=== PATIENT | male | born 1935 | race Caucasian/White ===

== ENCOUNTER 2020-09-05 07:30 | Inpatient (IN) | payer MEDICARE ==
[2020-09-05] MEDS ORDERED: DUONEB 0.5-3 MG/3 ml Neb IH ONE ×2 (07:44→08:03)
[2020-09-05] MEDS ORDERED: solu-MEDROL 125 MG IV ONE (07:44)
[2020-09-05] MEDS ORDERED: DILTIAZEM HCL 25 MG/5 ML VIAL IV ONE (07:50)
[2020-09-05] MEDS ORDERED: solu-MEDROL 125 MG ONE (07:52)
[2020-09-05] MEDS ORDERED: Cardizem IV 50 MG/10 ML IV ONE (07:53)
--- NOTE | 2020-09-05 07:56 | ERPHSYRPT ---
- History of Present Illness Time Seen by Provider: 09/05/20 07:31 Source: patient Exam Limitations: no limitations Physician History: Patient is here for low O2 and confusion. Patient has tested positive for Covid last week. Overall he was doing okay. However, this morning his states he became more confused, was hypoxic upon EMS arrival. Usually is not on any oxygen. Denies a history of smoking. Saw Dr. Jacques recent as yesterday. Location: generalized Quality: cough, COVID, SOB Radiation: none Severity: moderate Duration: 1 week Timing: gradual Modifying factors/associated signs and symptoms: home treatment, has seen Dr. Schultz Severity: moderate Modifying Factors: Improves With: other Associated Symptoms: denies symptoms, No syncope Allergies/Adverse Reactions: No Known Drug Allergies Allergy (Verified 09/05/20 08:10) Home Medications: Albuterol Sulfate [Albuterol Sulfate Hfa] 1 inh PO UD 09/05/20 [History] Apixaban [Eliquis] 5 mg PO BID 09/05/20 [History] Aspirin EC 81 mg [Ecotrin 81 mg] 81 mg PO DAILY 09/05/20 [History] Cefdinir [Omnicef 300 mg] 300 mg PO BID 09/05/20 [History] Famotidine [Pepcid] 40 mg PO DAILY 09/05/20 [History] Lisinopril 10 mg [Zestril 10 MG] 10 mg PO DAILY 09/05/20 [History] Lovastatin 20 mg PO DAILY 09/05/20 [History] Metoprolol Succinate 50 mg [Toprol Xl 50 MG] 50 mg PO DAILY 09/05/20 [History] Prednisone 20 mg [Deltasone 20 mg] 40 mg PO QAM 09/05/20 [History] - Review of Systems Constitutional: Other (increased confusion, per ), No Fever, No Chills Eyes: No Symptoms Ears, Nose, & Throat: No Symptoms Respiratory: Cough, Dyspnea Cardiac: No Chest Pain, No Edema, No Syncope Abdominal/Gastrointestinal: No Abdominal Pain, No Nausea, No Vomiting, No Diarrhea Genitourinary Symptoms: No Dysuria Musculoskeletal: No Back Pain, No Neck Pain Skin: No Rash Neurological: No Dizziness, No Focal Weakness, No Sensory Changes Psychological: No Symptoms Endocrine: No Symptoms All Other Systems: Reviewed and Negative - Nursing Vital Signs Nursing Vital Signs: Initial Vital Signs Pulse Rate 121 H 09/05/20 07:44 Respiratory Rate 36 H 09/05/20 07:44 Blood Pressure 179/117 09/05/20 07:44 O2 Sat by Pulse Oximetry 94 L 09/05/20 07:44 Pain Scale Pain Intensity 0 reviewed - Physical Exam SpO2 Interpretation: hypoxic, ABG ordered, O2 applied Comments: 09/05/20 08:04 Physical Exam Vitals signsand nursing notereviewed. Constitutional: Appearance: He is well-developed. Appears in distress from shortness of breath HENT: Head: Normocephalicand atraumatic. No obvious head trauma. Eyes: Conjunctiva/sclera: Conjunctivae normal. Neck: Musculoskeletal: Normal range of motion. Trachea: No tracheal deviation. Cardiovascular: Rate and Rhythm: Normal rate. Pulmonary: Effort: Tachypnea wheezing throughout Abdominal: Palpations: Abdomen is soft. Musculoskeletal: General: No deformity. Skin: General: Skin is warmand dry. Neurological: Mental Status: He is alertand oriented to person. Unsure of time or place. Psychiatric: Behavior: Behaviornormal. No trismus, able to fully extend neck, normal range of motion of neck without pain. Uvula is midline, no swelling of the mouth, noraml oropharynx. No exudate, no signs of meningitis, no floor of mouth swelling, no hot potato voice on exam. No buccal swelling, no gum bleeding, no signs of tooth abscess/infection. No obvious deformity, sensation intact, 2+ capillary refill, 2 point tactile discrimination intact. 5 out of 5 strength. Full range of motion without pain. Compartments are soft, nontender. Overlying skin shows no tenting, bruising, ecchymosis. - Course Nursing assessment & vital signs reviewed: Yes EKG Interpreted by Me: A-fib, Other (A. fib with RVR) Ordered Tests: Active Orders 24 hr Category Date Time Status Admit as Inpatient ROUTINE Care 09/05/20 07:58 Active Call Admit Doctor for Orders ON ADMISSION Care 09/05/20 07:59 Active Manager Inside STAT Care 09/05/20 07:32 Active Code Status Order ROUTINE Care 09/05/20 07:58 Active EKG-ER Only STAT Care 09/05/20 07:32 Active IV Care Q6H Care 09/05/20 07:58 Active IV Insertion STAT Care 09/05/20 07:32 Active Heart-Healthy Diet Diet 09/05/20 Breakfast Active CHEST 1 VIEW (PORTABLE) Stat Exams 09/05/20 07:32 Completed ABG [ARTERIAL BLOOD GASES] Stat Lab 09/05/20 07:35 Results CBC W DIFF Stat Lab 09/05/20 07:55 Completed CMP Stat Lab 09/05/20 07:55 Completed Lactic Acid Stat Lab 09/05/20 08:09 Completed Manual Differential NC Stat Lab 09/05/20 07:55 Completed NT PRO BNP Stat Lab 09/05/20 07:55 Completed PROTIME WITH INR Stat Lab 09/05/20 07:55 Completed TROPONIN Q3H Lab 09/05/20 07:55 Completed TROPONIN Q3H Lab 09/05/20 10:45 Ordered TROPONIN Q3H Lab 09/05/20 13:45 Ordered TROPONIN Q3H Lab 09/05/20 16:45 Ordered TROPONIN Q3H Lab 09/05/20 19:45 Ordered Pulse Oximetry CONTINUOUS RT 09/05/20 08:01 Active Respiratory Therapy Assessment DAILY RT 09/05/20 08:27 Active Medication Summary Generic Name Dose Route Start Last Admin Trade Name Freq PRN Reason Stop Dose Admin Sodium Chloride 1,000 mls @ 100 mls/hr 09/05/20 08:00 Sodium Chloride 0.9% 1000 Ml IV 10/05/20 07:59 .Q10H CHAR Morphine Sulfate 4 mg 09/05/20 07:58 Morphine Sulfate 4 Mg Inj IV 09/10/20 07:57 Q4H PRN PRN PAIN Ondansetron HCl 4 mg 09/05/20 07:58 Zofran 4 Mg/2 Ml Vial IV 10/05/20 07:57 Q6H PRN PRN NAUSEA/VOMITING Discontinued Medications Generic Name Dose Route Start Last Admin Trade Name Freq PRN Reason Stop Dose Admin Albuterol/Ipratropium 3 ml 09/05/20 07:44 09/05/20 07:50 Duoneb 0.5-3 Mg/3 Ml Neb IH 09/05/20 07:45 3 ml STAT ONE Administration Albuterol/Ipratropium Confirm 09/05/20 08:03 Duoneb 0.5-3 Mg/3 Ml Neb Administered 09/05/20 08:04 Dose 3 ml IH .STK-MED ONE Diltiazem HCl 15 mg 09/05/20 07:50 09/05/20 07:57 Diltiazem Hcl 25 Mg/5 Ml Vial IV 09/05/20 07:51 15 mg ONCE ONE Administration Diltiazem HCl Confirm 09/05/20 07:53 Cardizem Iv 50 Mg/10 Ml Administered 09/05/20 07:54 Dose 50 mg IV .STK-MED ONE Lorazepam 1 mg 09/05/20 08:26 09/05/20 08:36 Ativan 2 Mg/1 Ml Vial IV 09/05/20 08:27 1 mg STAT ONE Administration Lorazepam Confirm 09/05/20 08:27 Ativan 2 Mg/1 Ml Vial Administered 09/05/20 08:28 Dose 2 mg .ROUTE .STK-MED ONE Methylprednisolone Sodium Succinate 125 mg 09/05/20 07:44 09/05/20 07:56 Solu-Medrol 125 Mg IV 09/05/20 07:45 125 mg STAT ONE Administration Methylprednisolone Sodium Succinate Confirm 09/05/20 07:52 Solu-Medrol 125 Mg Administered 09/05/20 07:53 Dose 125 mg .ROUTE .STK-MED ONE Lab/Rad Data: Laboratory Result Diagrams 09/05/20 07:55 09/05/20 07:55 Laboratory Results 09/05/20 09/05/20 09/05/20 Range/Units 08:09 07:55 07:55 WBC (4.0-10.5) K/mm3 RBC (4.1-5.6) M/mm3 Hgb (12.5-18.0) gm/dl Hct (42-50) % MCV (78-100) fl MCH (26-32) pg MCHC (32-36) g/dl RDW (11.5-14.0) % Plt Count (150-450) K/mm3 MPV (7.5-11.0) fl Absolute Granulocytes (1.4-6.9) Segmented Neutrophils (36.-66.) % Band Neutrophils (0.0-2.0) % Lymphocytes (Manual) (24-44) % Monocytes (Manual) (0.0-12.0) % Nucleated RBCs % Hypochromia Platelet Estimate (NORMAL) RBC Morphology Polychromasia Anisocytosis Macrocytosis PT 37.0 H (8.83-12.87) SECONDS INR 3.24 H (0.8-3.0) Puncture Site pCO2 (35-45) mmHg pO2 (75-100) mmHg Base Excess (-2.0-2.0) O2 Saturation (94-100) g/dF ABG pH (7.35-7.45) ABG HCO3 (22-28) ABG O2 Sat (Measured) (95-100) % Jose Alberto Test A-a Gradient a/A Ratio Hemoglobin Carboxyhemoglobin (0.0-6.9) % THgb Methemoglobin (1.4-1.5) % Potassium (3.5-5.1) Temperature C POC O2 Flow Rate % Sodium (137-145) mmol/L Chloride (98-107) mmol/L Carbon Dioxide (22-30) mmol/L Anion Gap (5-15) MEQ/L BUN (9-20) mg/dL Creatinine (0.66-1.25) mg/dL Estimated GFR ML/MIN Glucose (74-106) mg/dL Lactic Acid 7.8 H (0.4-2.0) Calcium (8.4-10.2) mg/dL Total Bilirubin (0.2-1.3) mg/dL AST (17-59) U/L ALT (0-50) U/L Alkaline Phosphatase (38-126) U/L Troponin I 0.315 H* (0.000-0.034) ng/mL NT-Pro-B Natriuret Pep (0-1800) pg/mL Serum Total Protein (6.3-8.2) g/dL Albumin (3.5-5.0) g/dL 09/05/20 09/05/20 09/05/20 Range/Units 07:55 07:55 07:35 WBC 14.5 H (4.0-10.5) K/mm3 RBC 5.43 (4.1-5.6) M/mm3 Hgb 14.9 (12.5-18.0) gm/dl Hct 47.5 (42-50) % MCV 87.5 (78-100) fl MCH 27.4 (26-32) pg MCHC 31.4 L (32-36) g/dl RDW 18.0 H (11.5-14.0) % Plt Count 310 (150-450) K/mm3 MPV 10.2 (7.5-11.0) fl Absolute Granulocytes 12.31 H (1.4-6.9) Segmented Neutrophils 80 H (36.-66.) % Band Neutrophils 4 H (0.0-2.0) % Lymphocytes (Manual) 12 L (24-44) % Monocytes (Manual) 4 (0.0-12.0) % Nucleated RBCs 6 % Hypochromia 1+ Platelet Estimate NORMAL (NORMAL) RBC Morphology ABNORMAL Polychromasia 1+ Anisocytosis 1+ Macrocytosis 1+ PT (8.83-12.87) SECONDS INR (0.8-3.0) Puncture Site Pending pCO2 24 L (35-45) mmHg pO2 78 (75-100) mmHg Base Excess -9.9 L (-2.0-2.0) O2 Saturation 93.3 L (94-100) g/dF ABG pH 7.36 (7.35-7.45) ABG HCO3 13.6 L* (22-28) ABG O2 Sat (Measured) 94.7 L (95-100) % Jose Alberto Test Pending A-a Gradient 605 a/A Ratio 0.11 Hemoglobin 14.8 Carboxyhemoglobin 0.8 (0.0-6.9) % THgb Methemoglobin 0.7 L (1.4-1.5) % Potassium 5.6 H 5.8 H (3.5-5.1) Temperature 37.0 C POC O2 Flow Rate 100 % Sodium 144 (137-145) mmol/L Chloride 109 H (98-107) mmol/L Carbon Dioxide 21 L (22-30) mmol/L Anion Gap 19.5 H (5-15) MEQ/L BUN 30 H (9-20) mg/dL Creatinine 1.27 H (0.66-1.25) mg/dL Estimated GFR 57.6 ML/MIN Glucose 100 (74-106) mg/dL Lactic Acid (0.4-2.0) Calcium 8.7 (8.4-10.2) mg/dL Total Bilirubin 1.30 (0.2-1.3) mg/dL AST 573 H (17-59) U/L ALT 423 H (0-50) U/L Alkaline Phosphatase 170 H (38-126) U/L Troponin I (0.000-0.034) ng/mL NT-Pro-B Natriuret Pep 23977 H (0-1800) pg/mL Serum Total Protein 6.9 (6.3-8.2) g/dL Albumin 3.6 (3.5-5.0) g/dL - Progress Progress: improved Progress Note: 09/05/20 08:06 Patient is here with hypoxia and A. fib with RVR in the setting of a positive Covid test last week. Reviewing his chest x-ray he does appear to have worsening Covid pneumonia. He is somewhat more confused per the . I did discuss over the phone with Dr. Jacques. He requested that we not obtain a head CT. He stated he would continue to monitor mental status change and believes it is most likely due to hypoxia. I feel this is reasonable as long as he gets a head CT inpatient if anything changes. Will give breathing treatment, steroids, oxygen here. Patient's lactic acid was elevated. I do not believe this is secondary to a bacterial septic pattern. Rather secondary to tissue hypoxia and other disease pathology. We will hold off on antibiotics at this point in time per Dr. Jacques's request. We will initiate inpatient antibiotics should repeat lactic continue to elevate. Patient's troponin is also elevated. This would be expected with demand ischemia secondary to atrial fibrillation with RVR. Patient does have some nonspecific ST changes consistent with ischemia on patient's EKG. Patient is already on Lovenox at home. We will allow Dr. Jacques to make the decision on Lovenox versus heparin inpatient. ED critical care statement As staff physician, I have provided critical care. Time: 60 mins Criteria for critical illness: Atrial fibrillation with RVR, acute hypoxic respiratory failure, Covid pneumonia, elevated troponin Treatment and management provided include: Coordination of management with ETC care team, consultants, and inpatient care team. [id number] assessment of condition and response to therapy. Review and interpretation of emergent diagnostic testing. Medical chart review and completion. Direction and immediate supervision of the following therapy: Critical care was time spent personally by me on the following activities: blood draw for specimens, development of treatment plan with patient or surrogate, discussions with consultants, discussions with primary provider, interpretation of cardiac output measurements, evaluation of patient's response to treatment, examination of patient, obtaining history from patient or surrogate, ordering and performing treatments and interventions, ordering and review of laboratory studies, ordering and review of radiographic studies, pulse oximetry, re-evaluation of patient's condition and review of old charts. This time was independent of all procedures performed. Lauri Briceno 09/05/20 08:[address] Other ([place]) Will see patient in: hospital (full admit) Counseled pt/family regarding: lab results, diagnosis, need for follow-up, rad results - Departure Departure Disposition: Extended Care Facility Clinical Impression: Atrial fibrillation, Pneumonia due to COVID-19 virus, Acute respiratory failure with hypoxia, Elevated troponin Condition: Stable Critical Care Time: Yes Critical Care Time(excluding separately billable procedures): Critical 30-74 mins
[2020-09-05 07:57] LABS: A-aADO2 605; ABG HEMOGLOBIN 14.8; ABG POTASSIUM 5.8 (3.5-5.1); ARTERIAL BLD GAS O2 SATURATION 94.7 % (95-100); ARTERIAL BLOOD GAS BASE EXCESS -9.9 (-2.0-2.0); ARTERIAL BLOOD GAS FIO2 100 %; ARTERIAL BLOOD GAS PCO2 24 mmHg (35-45); ARTERIAL BLOOD GAS PO2 78 mmHg (75-100); ARTERIAL BLOOD GAS pH 7.36 (7.35-7.45); CARBOXYHEMOGLOBIN 0.8 % THgb (0.0-6.9); HCO3- 13.6 (22-28); HGB O2 SAT 93.3 g/dF (94-100); Methhemoglobin 0.7 % (1.4-1.5); paO2 pAO1 0.11
[2020-09-05] MEDS ORDERED: Zofran 4 MG/2 ML VIAL IV PRN (07:58)
[2020-09-05] MEDS ORDERED: MORPHINE SULFATE 4 MG INJ IV PRN ×2 (07:58→10:06)
[2020-09-05 08:09] LABS: Hematocrit 47.5 % (42-50); Hemoglobin 14.9 gm/dl (12.5-18.0); Mean Cell Volume 87.5 fl (78-100); Mean Corpuscular Hemoglobin 27.4 pg (26-32); Mean Corpuscular Hgb Concent. 31.4 g/dl (32-36); Mean Platelet Volume 10.2 fl (7.5-11.0); Platelet Count 310 K/mm3 (150-450); Red Blood Count 5.43 M/mm3 (4.1-5.6); White Blood Count 14.5 K/mm3 (4.0-10.5)
[2020-09-05] MEDS ORDERED: Ativan 2 MG/1 ML VIAL IV ONE (08:26)
[2020-09-05] MEDS ORDERED: Ativan 2 MG/1 ML VIAL ONE (08:27)
[2020-09-05 08:28] LABS: INR 3.24 (0.8-3.0)
[2020-09-05 08:31] LABS: BAND 4 % (0.0-2.0); Lymphocytes 12 % (24-44); Monocyte 4 % (0.0-12.0); Neutrophils 80 % (36.-66.); Nucleated Red Blood Cell 6 %; Total Cells Counted 100
[2020-09-05 08:35] LABS: ANISOCYTOSIS 1+; Hypochromia 1+; Macrocytosis 1+; Platelet Estimate NORMAL (NORMAL); Polychromasia 1+
[2020-09-05 08:36] LABS: Absolute Neutrophil Ct (ANC) 12.31 (1.4-6.9)
[2020-09-05 08:44] LABS: ALBUMIN 3.6 g/dL (3.5-5.0); ANION GAP 19.5 MEQ/L (5-15); BILIRUBIN,TOTAL 1.3 mg/dL (0.2-1.3); Calcium 8.7 mg/dL (8.4-10.2); Creatinine 1 1.27 mg/dL (0.66-1.25); EST GLOMERULAR FILTRATION RATE 57.6 ML/MIN; Potassium 5.6 mmol/L (3.5-5.1); Total Protein 6.9 g/dL (6.3-8.2)
--- NOTE | 2020-09-05 09:07 | XRAY ---
Indication: Pneumonia. Positive Covid 19. Comparison: None Portable apical lordotic chest demonstrates diffuse bilateral airspace disease without consolidation/large effusion. Heart is enlarged. Bony thorax intact with osteopenia and degenerative changes.
[2020-09-05] MEDS ORDERED: Lasix 40 MG/4 ML IV ONE (10:00)
[2020-09-05] MEDS ORDERED: Lasix 40 MG/4 ML ONE (10:02)
[2020-09-05] MEDS ORDERED: MORPHINE SULFATE 2 MG INJ IV PRN (10:06)
[2020-09-05] MEDS: Sodium Chloride 0.9% 1000 ML 1,000 ML IV SCH (10:07)
[2020-09-05] MEDS ORDERED: VENTOLIN COMMON CANISTER IH SCH (10:30)
[2020-09-05] MEDS ORDERED: Ventolin Hfa MDI IH SCH (10:30)
[2020-09-05] MEDS ORDERED: REMDESIVIR 200 MG in Sodium Chloride 0.9% 250 ML 250 ML IV ONE (11:00)
[2020-09-05] MEDS ORDERED: Toprol Xl 50 MG PO SCH (11:00)
[2020-09-05] MEDS ORDERED: Zestril 20 MG PO SCH (11:00)
[2020-09-05] MEDS: Levofloxacin 500MG/100ML D5W 500 MG/100 ML BAG IV SCH (11:00)
[2020-09-05] MEDS ORDERED: Pepcid 20 MG PO SCH (11:00)
[2020-09-05] MEDS: Decadron 4 MG INJ IV SCH ×2 (11:02→20:01)
[2020-09-05] MEDS ORDERED: VENTOLIN COMMON CANISTER IH PRN (12:34)
[2020-09-05] MEDS ORDERED: Haldol 5 MG IM PRN (13:43)
[2020-09-05] MEDS ORDERED: Cardizem 30 MG PO SCH (14:00)
[2020-09-05] MEDS: MORPHINE SULFATE 2 MG INJ IV PRN ×2 (14:07→20:11)
--- NOTE | 2020-09-05 15:25 | HP ---
CHIEF COMPLAINT: Can't breathe. HISTORY OF PRESENT ILLNESS: The patient is an 84 year old white male who woke up in the middle of the night and went to the bathroom and seemed to be somewhat short of breath, according to his . By 0600 hours or so, he was confused and unable to walk to get him back to bed. He tested positive for COVID last week and maybe went to [facility] for a day or two and came home. A family member gave him COVID probably. I actually saw him the day before admission when he became short of breath. However, he was walking in the house okay. He was in sinus rhythm. His chest had some wheezing. He had just finished off his Decadron and he did not have an inhaler which he had earlier so I started him back on prednisone 40 and inhaler. However, he deteriorated overnight. He did not have any complaints of chest pains. He had no nausea, vomiting. He has had COVID for about a week. He has been short of breath that has become progressively worse. MEDICATIONS: Eliquis 5 b.i.d. for atrial fibrillation. Albuterol 2 puffs every four hours PRN, aspirin 81 q.d., Omnicef 300 b.i.d., Pepcid 40 q.d., Lisinopril 10 q.d., lovastatin 20 q.d., Toprol XL 50 mg 1 q.d. for atrial fibrillation. Prednisone 40 mg just started yesterday. ALLERGIES: NKDA. REVIEW OF SYSTEMS: HEENT: When I talked to him he was hearing and seeing fine. CHEST: Short of breath on exertion. Short of breath severely at rest and requiring 100% oxygen. ABDOMEN: No nausea or vomiting. : No problems urinating. MUSCULOSKELETAL: In the past he was able to walk around the house. Before COVID, he was able to walk up and down his stairs and he walked in the yard, I am pretty sure. FAMILY HISTORY: He lives with his , Laura, and his pet dog in a nice house on [address]. He has two daughters, one which specially seems to be in touch and is the one who contacted me, and has a granddaughter. PHYSICAL EXAMINATION: Pulse in the emergency room 120, respiratory rate 30 and blood pressure 179/100. O2 saturation on pulse ox is 90. HEENT: Hears and sees probably okay. CHEST: Short of breath, wheezing bilateral. CVS: Tachycardic but regular at the present time. He has had atrial fibrillation. ABDOMEN: No masses. No hepatomegaly. EXTREMITIES: No edema. Warm, dry and pink. LAB DATA AND TESTS: The patient's INR was 3.24 but he is not on Coumadin. Lactic acid 7.8 and has gone up to 9 in the last four hours. His troponin was markedly elevated at 0.315 the normal up to 0.034. White count 14,000, hemoglobin 13.9. Blood gases with pCO2 24, pO2 78, pH 7.36. After being treated in the emergency room, methemoglobin 0.7 low, potassium 5.8, estimated GFR 57.6 which is normal. His BNP is markedly elevated at 16,000, anion gap is 19, alkaline phosphatase elevated 170, SGOT elevated 423, AST elevated at 573. IMPRESSION: The patient had COVID and COVID pneumonia, history of intermittent atrial fibrillation. He now has marked congestive heart failure with his BNP markedly elevated. He is going into liver failure secondary to congestive heart failure most likely. The cause of heart failure most likely COVID related. He has got a stent in so he had some coronary artery disease in the past. EKG shows no acute myocardial infarction although the troponin is elevated. I really think he has had an acute diffuse cardiomegaly secondary to COVID. PLAN: 1) Will diurese him, treat his COVID with Decadron and Remdesivir. 2) Watch his electrolytes. He does not need anticoagulation due to his liver failure. His pro-time is elevated. PROGNOSIS: Poor. He does not want to be intubated if that should come up. 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
[2020-09-05] MEDS ORDERED: FEVERALL 650 MG PR PRN (21:44)
[2020-09-06] MEDS: MORPHINE SULFATE 2 MG INJ IV PRN ×7 (00:03→23:37)
[2020-09-06] MEDS: Sodium Chloride 0.9% 1000 ML 1,000 ML IV SCH ×3 (08:31→21:49)
[2020-09-06] MEDS: Levofloxacin 500MG/100ML D5W 500 MG/100 ML BAG IV SCH (09:51)
[2020-09-06] MEDS: Decadron 4 MG INJ IV SCH ×2 (09:51→20:28)
[2020-09-06] MEDS ORDERED: NON-FORMULARY ITEM (Famotidine [Pepcid] 40 MG) PO SCH (10:00)
[2020-09-06] MEDS ORDERED: REMDESIVIR 100 MG in Sodium Chloride 0.9% 100 ML IVPB 100 ML IV SCH (10:00)
[2020-09-06 10:49] LABS: Absolute Neutrophil Ct (ANC) 19.39 (1.4-6.9); Basophil (Absolute #) 0 (0-0.4); Eosinophil (Absolute #) 0 (0-0.5); Hematocrit 46.8 % (42-50); Hemoglobin 14.3 gm/dl (12.5-18.0); Lymphocyte (Absolute #) 2.09 (1.0-4.6); Lymphocytes % 9.2 % (24.0-44.0); Mean Cell Volume 89.8 fl (78-100); Mean Corpuscular Hemoglobin 27.4 pg (26-32); Mean Corpuscular Hgb Concent. 30.6 g/dl (32-36); Mean Platelet Volume 11.2 fl (7.5-11.0); Monocyte (Absolute #) 1.18 (0.0-1.3); Monocytes % 5.2 % (0.0-12.0); Neutrophil % 85.6 % (36.0-66.0); Platelet Count 262 K/mm3 (150-450); Red Blood Count 5.21 M/mm3 (4.1-5.6); Red Cell Distribution Width 18.7 % (11.5-14.0); White Blood Count 22.7 K/mm3 (4.0-10.5)
[2020-09-06 11:08] LABS: ALBUMIN 3.3 g/dL (3.5-5.0); ANION GAP 22.2 MEQ/L (5-15); BILIRUBIN,TOTAL 2.7 mg/dL (0.2-1.3); Calcium 7.5 mg/dL (8.4-10.2); Creatinine 1 3.17 mg/dL (0.66-1.25); Total Protein 6.3 g/dL (6.3-8.2)
[2020-09-06 11:49] LABS: Potassium 6.1 mmol/L (3.5-5.1)
[2020-09-06] MEDS ORDERED: ENOXAPARIN SODIUM SQ SCH (12:00)
[2020-09-06] MEDS ORDERED: Lasix 20 MG/2 ML IV SCH (12:00)
--- NOTE | 2020-09-06 17:09 | XRAY ---
Indication: Short of breath. Positive Covid 19. Comparison: September 05, 2020. Portable chest demonstrates stable diffuse bilateral patchy airspace disease with new left base consolidation versus subsegmental atelectasis. Remaining heart and lungs unremarkable. Comment: Preliminary interpretation was made by [facility]. No critical discrepancy.
[2020-09-07] MEDS: MORPHINE SULFATE 2 MG INJ IV PRN ×4 (03:40→11:43)
[2020-09-07 06:45] LABS: ANION GAP 23.6 MEQ/L (5-15); BILIRUBIN,TOTAL 3.2 mg/dL (0.2-1.3); Creatinine 1 4.65 mg/dL (0.66-1.25); EST GLOMERULAR FILTRATION RATE 12.9 ML/MIN; Total Protein 5.8 g/dL (6.3-8.2)
[2020-09-07 07:37] LABS: Potassium 7.1 mmol/L (3.5-5.1)
[2020-09-07 07:38] LABS: Calcium 5.8 mg/dL (8.4-10.2)
[2020-09-07 09:48] LABS: Hematocrit 47.2 % (42-50); Hemoglobin 14.4 gm/dl (12.5-18.0); Mean Cell Volume 90.1 fl (78-100); Mean Corpuscular Hemoglobin 27.5 pg (26-32); Mean Corpuscular Hgb Concent. 30.5 g/dl (32-36); Mean Platelet Volume 11.3 fl (7.5-11.0); Platelet Count 282 K/mm3 (150-450); Red Blood Count 5.24 M/mm3 (4.1-5.6); Red Cell Distribution Width 18.9 % (11.5-14.0); White Blood Count 20.3 K/mm3 (4.0-10.5)
[2020-09-07 12:28] VITALS: PULSE 61; O2SAT 95
[2020-09-07 13:00] VITALS: BP 69/30
[2020-09-08] MEDS ORDERED: Levaquin 250MG/50ML D5W 250 MG/50 ML BAG IV SCH (10:00)
--- NOTE | 2020-09-08 11:13 | ECHO ---
Transthoracic echocardiographic examination and color Doppler was done on 09/05/2020. INDICATION: Congestive heart failure, atrial fibrillation. IMPRESSION: 1) GLOBAL LEFT VENTRICULAR HYPOKINESIA. EJECTION FRACTION BETWEEN 25 TO 30%. 2) AORTIC VALVE STENOSIS WITH PEAK TRANSAORTIC GRADIENT OF 23 MM OF MERCURY AND MEAN GRADIENT OF 10 MM OF MERCURY. 3) BICUSPID AORTIC VALVE. 4) MODERATE AORTIC REGURGITATION. 5) SEVERE TRICUSPID REGURGITATION WITH RIGHT VENTRICULAR SYSTOLIC PRESSURE OF 25 MM OF MERCURY SUGGESTIVE OF SEVERE PULMONARY HYPERTENSION. 6) BIATRIAL ENLARGEMENT. 7) LEFT VENTRICULAR HYPERTROPHY. The left ventricle is visualized and demonstrated global-type of hypokinesia. The ejection fraction of around 25 to 30%. There is concentric left ventricular hypertrophy. The mitral valve is seen and this opens adequately. There is trace mitral regurgitation. Left atrium is enlarged. The aortic valve is calcified and appears to be bicuspid. The peak gradient across the aortic valve is about 23 mm of Mercury and mean gradient of 10 mm of Mercury. There is at least moderate aortic regurgitation. The right side chambers are dilated. There is severe tricuspid regurgitation. The right ventricular systolic pressure of 75 mm of Mercury suggestive of severe pulmonary hypertension. The right atrium is also enlarged.
--- NOTE | 2020-09-08 13:12 | PROG NOTE ---
CHIEF COMPLAINT: COVID, severe heart failure, renal failure, liver failure secondary to heart failure, coronary artery disease. HISTORY: The patient deteriorated at home after being at [facility] for a couple of days. It happened rather quickly. He came in very short of breath. His brought him in. Chest x-ray showed COVID but it also suggested when I looked at it that he had heart failure. His BNP was elevated and repeated it had gone up tremendously. His creatinine was 4.65 although his liver enzymes continue to climb. His potassium is elevated. He was a No Code to start with and even if we did things this is irreversible. Severe heart failure is probably secondary to COVID virus involving the heart. His D-dimer is 61,000 which is the largest that I have ever seen that is related to inflammation from the COVID. Today, I wonder if it would be best to take [place] home with Hospice. The patient has all been exposed to COVID from numerous family members. In fact, he caught this from a family member. I think they are in line to let him at home. He should if not today the next day. We discontinued medications because of his liver failure really not effective. They had plans for [facility] to receive his body years ago and they actually have a number to call so one of them is working on getting him transferred, get Hospice, oxygen in hopes that he might make it home before his demise. 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 PROGNOSIS: Myrtle is dismal.
== END 2020-09-07 14:10 | disposition expired | DRG 177 ==
LOC: ED 07:30 → MED SURG 09:38
PROVIDERS: ADMIT Family Medicine; ATTEND Family Medicine
DX: U07.1 COVID-19 (principal); J12.89 Other viral pneumonia; I50.9 Heart failure, unspecified; K72.90 Hepatic failure, unspecified without coma; R09.02 Hypoxemia; R41.0 Disorientation, unspecified; I48.91 Unspecified atrial fibrillation; Z79.01 Long term (current) use of anticoagulants; Z79.899 Other long term (current) drug therapy; I25.10 Atherosclerotic heart disease of native coronary artery without angina pectoris; I51.4 Myocarditis, unspecified
CPT/HCPCS: 36000; 36415; 36600; 71045; 80053; 82375; 82803; 83605; 83880; 84484; 85025; 85027; 85379; 85610; 93005; 93041; 93306; 94640; 94762; 96374; 96375; 99285; 99291; J1100; J1650; J1940; J1956; J2060; J2270; J2930; A9270-GY